=== PATIENT | female | born 1965 | race African-American/Black ===

== ENCOUNTER 2022-04-03 21:01 | Emergency (ER) | payer BC, OTHER ==
[~2022-04-03] VITALS: Ht 152.4 cm; Wt 64.0 kg
[2022-04-03 21:03] VITALS: BP 130/58
[2022-04-04] MEDS ORDERED: ACETAMINOPHEN 325MG TABLET PO ONE (02:45)
== END 2022-04-04 05:20 | disposition home or self-care (01) ==
LOC: ER 21:01
DX: J06.9 Acute upper respiratory infection, unspecified (principal); Z88.2 Allergy status to sulfonamides; Z20.822 Contact with and (suspected) exposure to COVID-19
CPT/HCPCS: 71045; 81025; 87426; 87804; 99284; C9803